=== PATIENT | male | born 1950 | race Caucasian/White ===

== ENCOUNTER 2023-07-17 07:31 | Outpatient (AMB) | payer OTHER, SELFPAY ==
--- NOTE | 2023-07-17 07:35 | MHC.PC.OV ---
Vital Signs 07/17/23 07:36 Height 6 ft 2 in Weight 224 lb BMI 28.8 BP 120/70 Blood Pressure Location Lt brachial Position Sitting Pulse 78 Pulse Source Pulse Oximeter Pulse Oximetry (%) 99 Oxygen Delivery Method Room Air Intake Visit Reasons: PE Intake Note: Pt is here today for PE. Allergies No Known Allergies Allergy (Unverified 07/17/23 07:38) Medication List - Last Reconciled 07/17/23 by Delmi Ramirez MD amlodipine 5 mg PO DAILY atorvastatin 20 mg PO DAILY benazepril 20 mg PO DAILY bupropion HCl 150 mg PO QAM escitalopram oxalate 20 mg PO DAILY Tobacco use date assessed: 07/17/23 Fall risk assessment: No Falls in past year Last assessed Fall Risk: 07/17/23 Dental Screening Dental Screen Date: 07/17/23 Did you have a dental visit in the last 12 months?: No Did you have a dental problem in the last 6 months where you did not have access to dental care?: No Was dental information given to patient?: Patient declined HPI PE HPI Details Pt presents for [employer] PE. PMH includes anxiety, HTN, hyperlipid, stable on meds. Patient has been under lot of stress related to his diagnosed with Alzheimer's disease and his stepson living with them for the last year. PFSH Medical History (Updated 07/17/23 @ 15:35 by Delmi Ramirez MD) History of prostate cancer Surgical History (Updated 07/17/23 @ 08:07 by Delmi Ramirez MD) History of hernia surgery Family History Father Lymphoma Mother No problems noted. Social History (Updated 07/17/23 @ 08:16 by Delmi Ramirez MD) Household Members Other:: , with Alzheimer Housing: House Patient Tobacco Use Status: Never used Tobacco e-Cigarette/Vaping Use: Never Used Current occupational status: retired Cognitive needs: No Hearing needs: No Vision needs: No Questionnaire PHQ-9 Over the last 2 weeks, how often have you been bothered by any of the following problems? 1. Little interest or pleasure in doing things: more than half the days 2. Feeling down, depressed, or hopeless: several days 3. Trouble falling or staying asleep, or sleeping too much: several days 4. Feeling tired or having little energy: several days 5. Poor appetite or overeating: several days 6. Feeling bad about yourself - or that you are a failure or have let yourself or your family down: several days 7. Trouble concentrating on things, such as reading the newspaper or watching television: not at all 8. Moving or speaking so slowly that other people could have noticed. Or the opposite - being so fidgety or restless that you have been moving around a lot more than usual: not at all 9. Thoughts that you would be better off or of hurting yourself in some way: not at all Total score: 7 Depression Screening Interpretation: Negative Depression Screening Done: Yes Source: Developed by Drs. Vernon Macdonald, Melissa Ramos, Felipe García and colleagues, with an educational orestes from [employer]. Thrive Questionnaire Date Thrive assessed: 07/17/23 I am a: Patient What is your living situation today?: I have a steady place to live Within the past 12 months, did the food you bought not last and you didn't have the money to get more?: Never true Within the past 12 months, did you worry whether your food would run out before you got money to buy more?: Never true Do you have trouble paying for medicines?: No Do you have trouble getting transportation to medical appointments?: No Do you have trouble paying your heating and electricity bill?: No Do you have trouble taking care of your child, family member or friend?: No Do you have trouble with day-to-day activities such as bathing, preparing meals, shopping, managing finances, etc.?: No Are you currently unemployed and looking for a job?: No Are you interested in more education?: No Please select the resources that you would like help with: None Currently or been in a relationship where the following occur: no concerns reported THRIVE Score: 0 AUDIT C Alcohol Use Questionnaire (AUDIT-C) 1. How often do you have a drink containing alcohol?: Never 3. How often do you have six or more drinks on one occasion?: Never Total Score: 0 DIOGNEES-7 AMB Questionnaire DIOGENES-7 Date DIOGENES - 7 assessed: 07/17/23 Feeling nervous, anxious, or on edge: 3 = Nearly every day Not being able to stop or control worryin = Nearly every day Worrying too much about different things: 3 = Nearly every day Trouble relaxin = Nearly every day Being so restless that it is hard to sit still: 2 = More than half the days Becoming easily annoyed or irritable: 3 = Nearly every day Feeling afraid as if something awful might happen: 3 = Nearly every day Total DIOGENES-7 score (0-4 normal; 5-9 mild; 10-14 moderate; 15-21 severe): 20 Source: Developed by Drs. Vernon Macdonald, Melissa Ramos, Felipe García and colleagues, with an educational orestes from [employer]. DIOGENES-7 Assessment Billing DIOGENES-7 Assessment Tool: DIOGENES-7 Assessment 93970 Review of Systems Const All systems reviewed & are unremarkable except as noted in HPI and below Reports no additional complaints Eyes Reports no additional complaints ENT Reports no additional complaints Card Reports no additional complaints Resp Reports no additional complaints GI Reports no additional complaints Reports no additional complaints Physical exam (Primary Care) Vital Signs: Last Vital Signs Pulse 78 07/17/23 07:36 BP 120/70 07/17/23 07:36 Pulse Ox 99 07/17/23 07:36 Oxygen Delivery Method Room Air 07/17/23 07:36 BMI result Body Mass Index 28.8 Tobacco/Smoking Status: Tobacco use Status Tobacco use date assessed 07/17/23 07/17/23 07:46 Patient Tobacco Use Status Never used Tobacco 07/17/23 08:16 e-Cigarette/Vaping Use Never Used 07/17/23 08:16 PHQ-9: PHQ-9 Score PHQ-9: Total score 7 07/17/23 08:21 Depression Screening Interpretation: Negative Thrive Assessment: Date of Thrive Assessment Date Thrive assessed 07/17/23 07/17/23 08:21 Currently or been in a relationship where the following occur: no concerns reported Const General: no acute distress HENMT Head: Yes normal to inspection Ears: hearing grossly normal bilaterally Mouth: Normal oral and palatal mucosa present Throat: Yes posterior oropharynx normal Eyes General: appearance normal, both eyes and all related structures Neck Neck: Yes no lymphadenopathy and Yes supple Resp Effort & Inspection: normal respiratory effort Auscultation: clear to auscultation bilaterally Cardio Rhythm: regular rhythm Heart sounds: S1 normal heart sound present and S2 normal heart sound present GI Inspection: Yes normal to inspection Palpation (GI): Soft to palpation Percussion: Yes normal to percussion Auscultation: normal bowel sounds Assessment and Plan Assessment & Plan (1) HTN (hypertension): Code(s): I10 - Essential (primary) hypertension Plan: Continue current medications, patient will return for fasting blood work (2) Anxiety: Code(s): F41.9 - Anxiety disorder, unspecified Plan: Continue current medications (3) Hx of colonoscopy: Comment: 2013 Code(s): Z98.890 - Other specified postprocedural states Plan: Obtain report on a colonoscopy (4) Hyperlipidemia: Code(s): E78.5 - Hyperlipidemia, unspecified Plan: Continue statin (5) History of prostate cancer: Comment: surgery and [id number], f/u [facility] oncology Code(s): Z85.46 - Personal history of malignant neoplasm of prostate Plan: Follow-up with oncology and urology Orders: Orders Complete Blood Count Auto Diff Today F41.9 - Anxiety disorder, unspecified, I10 - Essential (primary) hypertension Comprehensive [place]. Panel Fast Today F41.9 - Anxiety disorder, unspecified, I10 - Essential (primary) hypertension Lipid Panel Today F41.9 - Anxiety disorder, unspecified, I10 - Essential (primary) hypertension TSH reflex Free T4 Today F41.9 - Anxiety disorder, unspecified, I10 - Essential (primary) hypertension UA CC w/rflx Micro + Cult Today F41.9 - Anxiety disorder, unspecified, I10 - Essential (primary) hypertension Medications: New atorvastatin 20 mg PO DAILY 90 tabs 3RF amlodipine 5 mg PO DAILY 90 tabs 3RF Refilled benazepril 20 mg PO DAILY 90 tabs 3RF escitalopram oxalate 20 mg PO DAILY 90 tabs 3RF bupropion HCl 150 mg PO QAM 90 tabs 3RF Coding Level of Care Code New Pt Prev Care >65yr (74708) Diagnoses HTN (hypertension) I10 Anxiety F41.9 Hx of colonoscopy Z98.890 Hyperlipidemia E78.5 History of prostate cancer Z85.46 Additional Codes DIOGENES-7 Assessment Billing - DIOGENES-7 Assessment Tool: DIOGENES-7 Assessment 47522 ([id number])
[2023-07-17 07:36] VITALS: BP 120/70; PULSE 78; O2SAT 99; BMI 28.8
== END 2023-07-17 15:36 | disposition home or self-care (01) ==
PROVIDERS: PCP Internal Medicine; Visit Provider Internal Medicine
DX: Z00.00 Encounter for general adult medical examination without abnormal findings (principal); I10 Essential (primary) hypertension; F41.9 Anxiety disorder, unspecified; Z98.890 Other specified postprocedural states; E78.5 Hyperlipidemia, unspecified; Z85.46 Personal history of malignant neoplasm of prostate
CPT/HCPCS: 99387

== ENCOUNTER 2023-07-17 08:22 | Outpatient (REF) | payer MEDICARE, SELFPAY ==
[2023-07-17 10:14] LABS: MANUAL DIFF FLAG NO
[2023-07-17 10:16] LABS: Appearance Urine Clear; Color Urine Dark Yellow; Glucose Urine UA Negative (Negative); Leukocyte Esterase Urine Negative (Negative); Nitrite Urine Negative (Negative); PH 5.5 (5.0-9.0); Specific Gravity - Urine 1.025 (1.005-1.025); Urine Blood Negative (Negative); Urine Ketones Negative (Negative); Urine Protein Negative (Neg-Trace)
[2023-07-17 10:22] LABS: Basophils Absolute Auto 0.1 X10*3/uL (0.0-0.2); Basophils Percent Auto 0.6 % (0-2); Eosinophils Absolute Auto 0.1 X10*3/uL (0.0-0.4); Eosinophils Percent Auto 0.9 % (0-4); Hematocrit 50.8 % (42.0-52.0); Hemoglobin 17.5 g/dl (14.0-18.0); Imm Gran Abs Auto 0.03 X10*3/uL (0.00-0.03); Imm Gran Pct Auto 0.4 % (0.0-0.4); Lymphocytes Absolute Auto 1.2 X10*3/uL (1.2-4.9); Mean Corpuscular HGB Conc 34.4 g/dl (31.0-36.0); Mean Corpuscular Hemoglobin 30.6 pg (27.0-33.0); Mean Platelet Volume 9.8 fL (9.4-12.4); Monocytes Absolute Auto 0.5 X10*3/uL (0.1-1.2); Monocytes Percent Auto 6.8 % (2-11); Neutrophils Absolute Auto 5.8 x10*3/uL (2.0-8.3); Neutrophils Percent Auto 75.3 % (45-73); Platelet Count 261 X10*3/uL (160-400); Red Blood Count 5.71 X10*6/uL (4.60-5.80); White Blood Count 7.8 X10*3/uL (4.8-10.8)
[2023-07-17 11:12] LABS: Alanine Aminotransferase 17 U/L (0-40); Albumin Level 4.6 g/dL (3.5-5.0); Alkaline Phosphatase 79 U/L (39-117); Anion Gap 17 (12-20); Aspartate Amino Transferase 14 U/L (5-37); Bilirubin Total 0.7 mg/dL (0.0-1.0); Blood Urea Nitrogen 24 mg/dL (9-16); Calcium 10.1 mg/dL (8.4-10.2); Carbon Dioxide 22 mmol/L (22-29); Chloride 107 mmol/L (96-108); Cholesterol 159 mg/dL (<200); Estimated Glomerular Filt Rate > 60; Glucose Fasting 103 mg/dL (60-99); HDL Cholesterol 41 mg/dL (>40); LDL Cholesterol Calculated 67 mg/dL (<100); Potassium 4.6 mmol/L (3.3-5.1); Sodium 141 mmol/L (135-145); Total Protein 7.7 g/dL (6.5-8.0); Triglycerides 259 mg/dL (<150)
[2023-07-17 11:29] LABS: TSH reflex Free T4 3.62 uIU/mL (0.32-4.0)
== END 2023-07-17 08:23 | disposition home or self-care (01) ==
LOC: HO.HMGCLDS 08:22
PROVIDERS: PCP Internal Medicine; Visit Provider Internal Medicine
DX: I10 Essential (primary) hypertension (principal); F41.9 Anxiety disorder, unspecified
CPT/HCPCS: 36415; 80053; 80061; 81003; 84443; 85025

== ENCOUNTER 2023-10-22 07:25 | Outpatient (AMB) | payer OTHER, SELFPAY ==
[2023-10-22 07:44] VITALS: BP 130/80; PULSE 75; O2SAT 96; BMI 29.0
--- NOTE | 2023-10-22 07:44 | A.OFFPC_ITS ---
Vital Signs 10/22/23 07:44 Height 6 ft 2 in Weight 226 lb BMI 29.0 BP 130/80 Blood Pressure Location Rt brachial Position Sitting Pulse 75 Pulse Source Pulse Oximeter Pulse Oximetry (%) 96 Oxygen Delivery Method Room Air Intake Visit Reasons: 3 month follow up - see comment Intake Note: Pt is here today for his 3mo. f/u Allergies No Known Allergies Allergy (Unverified 10/22/23 07:45) Medication List - Last Reconciled 10/22/23 by Delmi Ramirez MD amlodipine 5 mg PO DAILY atorvastatin 20 mg PO DAILY benazepril 20 mg PO DAILY bupropion HCl XL 150 mg PO QAM escitalopram oxalate 20 mg PO DAILY Tobacco use date assessed: 10/22/23 Fall risk assessment: No Falls in past year Last assessed Fall Risk: 10/22/23 Dental Screening Dental Screen Date: 10/22/23 Did you have a dental visit in the last 12 months?: No Was dental information given to patient?: No HPI 3 month follow up - see comment HPI Details Patient is for follow-up on hypertension hyperlipidemia chronic anxiety stable on current medications. [facility] Medical History History of prostate cancer Surgical History History of hernia surgery Family History Father Lymphoma Mother No problems noted. Social History Household Members Other:: , with Alzheimer Housing: House Patient Tobacco Use Status: Never used Tobacco e-Cigarette/Vaping Use: Never Used Current occupational status: retired Cognitive needs: No Hearing needs: No Vision needs: Yes Questionnaire Thrive Questionnaire Date Thrive assessed: 07/17/23 DIOGENES-7 AMB Questionnaire DIOGENES-7 Date DIOGENES - 7 assessed: 07/17/23 Source: Developed by Drs. Vernon Macdonald, Melissa Ramos, Felipe García and colleagues, with an educational orestes from [employer] Review of Systems Const All systems reviewed & are unremarkable except as noted in HPI and below Reports no additional complaints Eyes Reports no additional complaints ENT Reports no additional complaints Card Reports no additional complaints Resp Reports no additional complaints GI Reports no additional complaints Reports no additional complaints Physical exam (Primary Care) Vital Signs: Last Vital Signs Pulse 75 10/22/23 07:44 BP 130/80 10/22/23 07:44 Pulse Ox 96 10/22/23 07:44 Oxygen Delivery Method Room Air 10/22/23 07:44 BMI result Body Mass Index 29.0 Tobacco/Smoking Status: Tobacco use Status Tobacco use date assessed 10/22/23 10/22/23 07:48 Patient Tobacco Use Status Never used Tobacco 10/22/23 07:48 e-Cigarette/Vaping Use Never Used 10/22/23 07:48 Thrive Assessment: Date of Thrive Assessment Date Thrive assessed 07/17/23 10/22/23 07:48 Const General: no acute distress HENMT Head: Yes normal to inspection Eyes General: appearance normal, both eyes and all related structures Neck Neck: Yes supple Resp Effort & Inspection: normal respiratory effort Auscultation: clear to auscultation bilaterally Cardio Rhythm: regular rhythm Heart sounds: S1 normal heart sound present and S2 normal heart sound present GI Inspection: Yes normal to inspection Assessment and Plan Assessment & Plan (1) Hyperlipidemia: Code(s): E78.5 - Hyperlipidemia, unspecified Plan: Continue statin (2) HTN (hypertension): Code(s): I10 - Essential (primary) hypertension Plan: Continue current medications (3) Anxiety: Code(s): F41.9 - Anxiety disorder, unspecified Plan: Continue current medications Orders: Orders Comprehensive [place]. Panel Fast 8 Months E78.5 - Hyperlipidemia, unspecified, F41.9 - Anxiety disorder, unspecified, I10 - Essential (primary) hypertension Complete Blood Count Auto Diff 8 Months E78.5 - Hyperlipidemia, unspecified, F41.9 - Anxiety disorder, unspecified, I10 - Essential (primary) hypertension Lipid Panel 8 Months E78.5 - Hyperlipidemia, unspecified, F41.9 - Anxiety disorder, unspecified, I10 - Essential (primary) hypertension Coding Level of Care Code Est Pt Level 4 (86780) Diagnoses Hyperlipidemia E78.5 HTN (hypertension) I10 Anxiety F41.9
== END 2023-10-22 08:14 | disposition home or self-care (01) ==
PROVIDERS: PCP Internal Medicine; Visit Provider Internal Medicine
DX: E78.5 Hyperlipidemia, unspecified (principal); I10 Essential (primary) hypertension; F41.9 Anxiety disorder, unspecified
CPT/HCPCS: 99214

== ENCOUNTER 2024-09-15 12:24 | Outpatient (AMB) | payer MEDICARE, SELFPAY ==
--- NOTE | 2024-09-15 12:42 | A.OFFPC_ITS ---
Vital Signs 09/15/24 12:43 Height 6 ft 2 in Weight 220 lb BMI 28.2 BP 126/82 Blood Pressure Location Lt brachial Position Sitting Respiration 18 Pulse 81 Pulse Source Pulse Oximeter Temp 98.7 F Temp Source Oral Pulse Oximetry (%) 98 Oxygen Delivery Method Room Air Intake Visit Reasons: Med Review - see comments Intake Note: Pt is here today for a follow up visit. Allergies No Known Allergies Allergy (Unverified 09/15/24 12:44) Medication List - Last Reconciled 09/15/24 by Delmi Ramirez MD amlodipine 5 mg PO DAILY atorvastatin 20 mg PO DAILY benazepril 20 mg PO DAILY bupropion HCl XL 150 mg PO QAM escitalopram oxalate 20 mg PO DAILY Tobacco use date assessed: 09/15/24 Fall risk assessment: No Falls in past year Last assessed Fall Risk: 09/15/24 Dental Screening Dental Screen Date: 09/15/24 Did you have a dental visit in the last 12 months?: No Did you have a dental problem in the last 6 months where you did not have access to dental care?: No Was dental information given to patient?: Patient declined HPI Med Review - see comments HPI Details Pt presents for f/u HTN and hyperlipid, stable on meds PFSH Medical History History of prostate cancer Surgical History History of hernia surgery Family History Father Lymphoma Mother No problems noted. Social History Household Members Other:: , with Alzheimer Housing: House Patient Tobacco Use Status: Never used Tobacco e-Cigarette/Vaping Use: Never Used service: No Current occupational status: retired Cognitive needs: No Hearing needs: No Vision needs: Yes Questionnaire PHQ-9 Over the last 2 weeks, how often have you been bothered by any of the following problems? 1. Little interest or pleasure in doing things: more than half the days 2. Feeling down, depressed, or hopeless: not at all 3. Trouble falling or staying asleep, or sleeping too much: several days 4. Feeling tired or having little energy: several days 5. Poor appetite or overeating: not at all 6. Feeling bad about yourself - or that you are a failure or have let yourself or your family down: not at all 7. Trouble concentrating on things, such as reading the newspaper or watching television: not at all 8. Moving or speaking so slowly that other people could have noticed. Or the opposite - being so fidgety or restless that you have been moving around a lot more than usual: not at all 9. Thoughts that you would be better off or of hurting yourself in some way: not at all Total score: 4 Depression Screening Interpretation: Negative Depression Screening Done: Yes 69237 - PHQ-9 Billing: Yes Source: Developed by Drs. Vernon Macdonald, Melissa Ramos, Felipe García and colleagues, with an educational orestes from [employer]. Thrive Questionnaire Date Thrive assessed: 09/15/24 I am a: Patient What is your living situation today?: I have a steady place to live Within the past 12 months, did the food you bought not last and you didn't have the money to get more?: Never true Within the past 12 months, did you worry whether your food would run out before you got money to buy more?: Never true Do you have trouble paying for medicines?: No Do you have trouble getting transportation to medical appointments?: No Do you have trouble paying your heating and electricity bill?: No Do you have trouble taking care of your child, family member or friend?: No Do you have trouble with day-to-day activities such as bathing, preparing meals, shopping, managing finances, etc.?: No Are you currently unemployed and looking for a job?: No Are you interested in more education?: No Please select the resources that you would like help with: None Currently or been in a relationship where the following occur: No concerns reported THRIVE Score: 0 AUDIT C Alcohol Use Questionnaire (AUDIT-C) 1. How often do you have a drink containing alcohol?: Never 3. How often do you have six or more drinks on one occasion?: Never Total Score: 0 DIOGENES-7 AMB Questionnaire DIOGENES-7 Date DIOGENES - 7 assessed: 09/15/24 Feeling nervous, anxious, or on edge: 0 = Not at all Not being able to stop or control worryin = Not at all Worrying too much about different things: 0 = Not at all Trouble relaxin = Not at all Being so restless that it is hard to sit still: 0 = Not at all Becoming easily annoyed or irritable: 0 = Not at all Feeling afraid as if something awful might happen: 0 = Not at all Total DIOGENES-7 score (0-4 normal; 5-9 mild; 10-14 moderate; 15-21 severe): 0 Source: Developed by Drs. Vernon Macdonald, Melissa Ramos, Felipe García and colleagues, with an educational orestes from [employer]. DIOGENES-7 Assessment Billing DIOGENES-7 Assessment Tool: DIOGENES-7 Assessment 71585 Review of Systems Const All systems reviewed & are unremarkable except as noted in HPI and below Eyes Reports no additional complaints ENT Reports no additional complaints Card Reports no additional complaints Resp Reports no additional complaints GI Reports no additional complaints Reports no additional complaints Physical exam (Primary Care) Vital Signs: Last Vital Signs Temp 98.7 F 09/15/24 12:43 Pulse 81 09/15/24 12:43 Resp 18 09/15/24 12:43 BP 126/82 09/15/24 12:43 Pulse Ox 98 09/15/24 12:43 Oxygen Delivery Method Room Air 09/15/24 12:43 BMI result Body Mass Index 28.2 Tobacco/Smoking Status: Tobacco use Status Tobacco use date assessed 09/15/24 09/15/24 12:49 Patient Tobacco Use Status Never used Tobacco 09/15/24 12:49 e-Cigarette/Vaping Use Never Used 09/15/24 12:49 PHQ-9: PHQ-9 Score PHQ-9: Total score 4 09/15/24 12:49 Depression Screening Interpretation: Negative Thrive Assessment: Date of Thrive Assessment Date Thrive assessed 09/15/24 09/15/24 12:49 Currently or been in a relationship where the following occur: No concerns reported Const General: no acute distress HENMT Head: Yes normal to inspection Mouth: Normal oral and palatal mucosa present Throat: Yes posterior oropharynx normal Eyes General: appearance normal, both eyes and all related structures Resp Effort & Inspection: normal respiratory effort Auscultation: clear to auscultation bilaterally Cardio Rhythm: regular rhythm Heart sounds: S1 normal heart sound present and S2 normal heart sound present GI Inspection: Yes normal to inspection Palpation (GI): Soft to palpation Percussion: Yes normal to percussion Auscultation: normal bowel sounds Coding Level of Care Code Est Pt Level 4 (47688) Diagnoses Hx of colonoscopy Z98.890 HTN (hypertension) I10 Hyperlipidemia E78.5 Anxiety F41.9 History of prostate cancer Z85.46 Additional Codes DIOGENES-7 Assessment Billing - DIOGENES-7 Assessment Tool: DIOGENES-7 Assessment 48021 ([id number]) PHQ-9 - 49419 - PHQ-9 Billing: Yes ([id number]) Assessment & Plan Assessment & Plan (1) Hx of colonoscopy: Comment: 2013, Cologuard negative 2023 by insurance ? check results Code(s): Z98.890 - Other specified postprocedural states Category: Surgical Plan: Patient negative Cologuard last year (2) HTN (hypertension): Code(s): I10 - Essential (primary) hypertension Category: Medical Plan: Continue current medications (3) Hyperlipidemia: Code(s): E78.5 - Hyperlipidemia, unspecified Category: Medical Plan: Continue statin return in 1 year (4) Anxiety: Code(s): F41.9 - Anxiety disorder, unspecified Category: Medical Plan: Continue current medications (5) History of prostate cancer: Comment: surgery and [id number], f/u [facility] oncology Code(s): Z85.46 - Personal history of malignant neoplasm of prostate Category: Medical Plan: Follow-up with Urology Orders: Orders Comprehensive [place]. Panel Fast Today E78.5 - Hyperlipidemia, unspecified, I10 - Essential (primary) hypertension Lipid Panel Today E78.5 - Hyperlipidemia, unspecified, I10 - Essential (primary) hypertension Comprehensive [place]. Panel Fast 1 Year E78.5 - Hyperlipidemia, unspecified, I10 - Essential (primary) hypertension Complete Blood Count Auto Diff 1 Year E78.5 - Hyperlipidemia, unspecified, I10 - Essential (primary) hypertension Lipid Panel 1 Year E78.5 - Hyperlipidemia, unspecified, I10 - Essential (primary) hypertension Complete Blood Count Auto Diff Today E78.5 - Hyperlipidemia, unspecified, I10 - Essential (primary) hypertension UA w Microscopic 1 Year E78.5 - Hyperlipidemia, unspecified, I10 - Essential (primary) hypertension Medications: Refilled benazepril 20 mg PO DAILY 90 tabs 3RF escitalopram oxalate 20 mg PO DAILY 90 tabs 3RF amlodipine 5 mg PO DAILY 90 tabs 3RF atorvastatin 20 mg PO DAILY 90 tabs 3RF bupropion HCl XL 150 mg PO QAM 90 tabs 3RF
[2024-09-15 12:43] VITALS: BP 126/82; PULSE 81; RESP 18; TEMP 37.1; O2SAT 98; BMI 28.2
== END 2024-09-15 12:59 | disposition home or self-care (01) ==
PROVIDERS: PCP Internal Medicine; Visit Provider Internal Medicine
DX: Z98.890 Other specified postprocedural states (principal); I10 Essential (primary) hypertension; E78.5 Hyperlipidemia, unspecified; F41.9 Anxiety disorder, unspecified; Z85.46 Personal history of malignant neoplasm of prostate

== ENCOUNTER → 2024-09-15 12:24 | Outpatient (BNVA) | payer MEDICARE, SELFPAY | PROVIDERS: PCP Internal Medicine; Visit Provider Internal Medicine | DX: I10 Essential (primary) hypertension (principal); E78.5 Hyperlipidemia, unspecified; F41.9 Anxiety disorder, unspecified; Z85.46 Personal history of malignant neoplasm of prostate; Z98.890 Other specified postprocedural states | CPT/HCPCS: 96127; 99212 ==

== ENCOUNTER 2025-01-12 10:43 | Outpatient (AMB) | payer MEDICARE, SELFPAY ==
--- NOTE | 2025-01-12 10:50 | AM.OFFWIN_ITS ---
Intake Vital Signs 01/12/25 10:52 Height 6 ft 2 in Weight 230 lb BMI 29.5 BP 138/82 Blood Pressure Location Lt brachial Position Sitting Respiration 17 Pulse 75 Pulse Source Pulse Oximeter Temp 98.3 F Temp Source Oral Pulse Oximetry (%) 98 Oxygen Delivery Method Room Air Intake Visit Reasons: EP Gout in RT wrist Intake Note: gout in R wrist Patient Tobacco Use Status: Never used Tobacco Allergies No Known Allergies Allergy (Verified 01/12/25 10:51) Do you need a note to return to daycare/school/sports/work: No HPI HPI Comments History of Present Illness Details History - The patient is a 74-year-old male pres enting with a flare of gout in the wrist. - The patient has a history of gout, typ ically affecting the toes, with the current episode being the first occurrence in the wrist. - The wrist pain began approximately thr ee weeks ago, initially mild, but worsened significantly over the past 5 days. - The patient reports dietary triggers, including consumption of red meat and fast food, which may have exacerbated the condition. - The patient has been managing gout wit h Tylenol due to a history of kidney stones and having only one kidney, avoiding NSAIDs as advised by a physician. - Previous use of Aleve was ineffective in alleviating symptoms. Physical Exam General: Cooperative, healthy appearing, comfortable, no acute distress and well developed Orientation: Patient oriented x3 Limitations: No limitations Head: Normal to inspection Ears: Hearing grossly normal bilaterally Nose: Normal External nose present Face and sinus: Normal facial exam Mouth: normal, moist oral mucosa Eyes: Appearance normal, both eyes and all related structures Neck: Normal visual inspection and Yes full ROM Respiratory: Normal respiratory effort and able to speak in complete sentences. Skin: no rashes or lesions noted Neuro: Patient oriented x3 Extremities: moving all extremities normally, except right wrist which is TTP, has erythema and edema PFSH Medical History History of prostate cancer Surgical History History of hernia surgery Family History Father Lymphoma Mother No problems noted. Social History Household Members Other:: , with Alzheimer Housing: House Patient Tobacco Use Status: Never used Tobacco e-Cigarette/Vaping Use: Never Used service: No Current occupational status: retired Cognitive needs: No Hearing needs: No Vision needs: Yes Review of Systems Const All systems reviewed & are unremarkable except as noted in HPI and below Physical Exam Vital Signs: Last Vital Signs Temp 98.3 F 01/12/25 10:52 Pulse 75 01/12/25 10:52 Resp 17 01/12/25 10:52 BP 138/82 01/12/25 10:52 Pulse Ox 98 01/12/25 10:52 Oxygen Delivery Method Room Air 01/12/25 10:52 BMI result Body Mass Index 29.5 Assessment & Plan Assessment & Plan (1) Gout attack: Code(s): M10.9 - Gout, unspecified Qualifiers: Gout site: wrist Gout etiology: unspecified cause Laterality: right Qualified Code(s): M10.9 - Gout, unspecified Plan: Plan Patient was informed and verbally consented to the use of an ambient scribe for clinic note documentation during this visit Gout - Initiate prednisone 50 mg once daily for five days to manage the acute flare. - Advise dietary modifications to avoid red meat, beer and shrimp and other known triggers. Medications: New prednisone 50 mg PO QAM 5 tabs 0RF Coding Level of Care Code Est Pt Level 3 (25087) Diagnoses Acute gout of right wrist, unspecified cause M10.9 Gout site: wrist Gout etiology: unspecified cause Laterality: right
[2025-01-12 10:52] VITALS: BP 138/82; PULSE 75; RESP 17; TEMP 36.8; O2SAT 98; BMI 29.5
--- OUTSIDE RECORDS SUMMARY | 2025-01-12 12:13 | XMS_ITS | Clinical Summary ---
Author Organization [facility] Address [address] [place] [id number] Phone Care Team Providers Care Piler Name Role Phone Unknown, Unknown Primary Care Provider True labmagalie Allergies No known active allergies Medications atorvastatin (LIPITOR) 20 MG tablet TAKE 1 TABLET(20 MG) BY MOUTH DAILY 90 tablet 3 05/28/2022 Active benazepril (LOTENSIN) 20 MG tablet TAKE 1 TABLET(20 MG) BY MOUTH DAILY 90 tablet 3 05/28/2022 Active amLODIPine (NORVASC) 5 MG tabletIndications :Essential hypertension TAKE 1 TABLET(5 MG) BY MOUTH DAILY 90 tablet 3 08/26/2022 Active buPROPion (WELLBUTRIN XL) 150 MG ER 24 hr tabletIndications :DIOGENES (generalized anxiety disorder),Current moderate episode of major depressive disorder, unspecified whether recurrent TAKE 1 TABLET(150 MG) BY MOUTH DAILY 90 tablet 3 11/20/2022 Active escitalopram oxalate (LEXAPRO) 20 MG tabletIndications :Current moderate episode of major depressive disorder TAKE 1 TABLET(20 MG) BY MOUTH DAILY 90 tablet 04/21/2023 Active Active Problems Problem Noted Date Diagnosed Date Routine general medical exam ination at a health care facility 01/14/2022 Assessment & Plan (01/14/2022 9:40 AM EDT): The patient's memory is improving much after having COVID back in 2019 and being in the hospital. Back then he could barely remember the hospital stay itself. Afterwards had a lot of memory issues and now is much better he states. He is able to go about his ADLs with no issue. His mood is stable, continues on the Lexapro and Wellbutrin as before without side effect. We can see him every 6 months. He will continue on benazepril for hypertension as well as Norvasc. Memory loss 09/24/2021 Assessment & Plan (01/14/2022 9:38 AM EDT): This has been improving with time. The memory loss came after April 2020 hospital stay COVID-19. Patient continues to work on memory and keeping his mind agile Assessment & Plan (09/24/2021 5:43 PM EDT): This appears to be a long-term consequence of hospitalization with BEBO. He should work on his memory, he can take Prevagen and see if that helps with his memory. We will check a B12 level and thyroid preliminarily and then see how he does within the next 3 months. If he finds that there is no progress or these are getting worse then we will refer him to Dr. Carney if necessary. Incisional hernia of anterio r abdominal wall without obstruction or gangrene 12/04/2020 Assessment & Plan (12/04/2020 9:00 AM EDT): He has both an umbilical hernia and then when it appears to be a incisional hernia above it possibly after the radical prostatectomy. No signs of incarceration no abdominal tenderness still the patient is requesting a surgical consult so we will send the patient to Dr. Patel at [facility] to assess for repair. Congenital absence of one kidney 12/04/2020 Current moderate episode of major depressive dis order 12/04/2020 Assessment & Plan (07/07/2022 8:23 AM EST): Wellbutrin and SSRI working well for depression. Assessment & Plan (09/24/2021 5:45 PM EDT): Patient on Lexapro and Wellbutrin for anxiety and depression, we can maintain these doses since the products are working very well to help him reduce or eliminate panic attacks and depression. We can follow-up in 3 months on his wellness visit otherwise I will see him twice a year. Assessment & Plan (03/06/2021 9:14 AM EDT): Mood is good, stable, no anxiety, continue Lexapro plus Wellbutrin 150 XL. Monitor again in August. Assessment & Plan (01/25/2021 10:22 AM EDT): The patient's depression was not really the main reason the Wellbutrin was written but his depression is being monitored again today and he notes improvement not only of his anxiety attacks or free-floating anxiety but also his depression is improved markedly. Assessment & Plan (12/04/2020 9:02 AM EDT): Please see assessment in DIOGENES COVID-19 virus infection 06/05/2020 Overview (06/05/2020): Pt was admitted 05/13 for 7 days in [facility] for dyspnea associated with covid 19 infection. 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 He was not intubated but required O2 during the hospitalization. Assessment & Plan (06/05/2020 6:15 PM EST): On exam we could not find any sick related to the recent COVID-19 infection that he had in April. His speech was normal in form and content and his mentation level and cognitive level as well as the syntax of this sentences all within normal limits. Nephrolithiasis 06/05/2020 Essential hypertension 06/05/2020 Assessment & Plan (07/07/2022 8:24 AM EST): Hypertension well controlled with current listed antihypertensives. Denies side effects No change to dosing. Low Sodium diet reinforced. Continue to monitor condition. Assessment & Plan (01/14/2022 9:38 AM EDT): Hypertension well controlled with current listed antihypertensives. Denies side effects No change to dosing. Low Sodium diet reinforced. Continue to monitor condition. Assessment & Plan (09/24/2021 5:40 PM EDT): Hypertension well controlled with current listed antihypertensives. Denies side effects No change to dosing. Low Sodium diet reinforced. Continue to monitor condition. We will obtain a Chem-7 to assess electrolyte and kidney function. Assessment & Plan (03/06/2021 9:13 AM EDT): Maintain Norvasc at 5 mg and we will see the patient back in August for follow-up 15 minutes, physical exam though will be in November. Low-sodium diet reinforced, we encouraged him to exercise and if he is feeling lightheaded when standing up we encouraged him to drink more water as it can sometimes be an issue as well. If he is losing weight and checking his blood pressure at home he may come off of the amlodipine entirely and then he should just let us know. Assessment & Plan (01/25/2021 10:21 AM EDT): Blood pressure is very well controlled but he is having orthostasis and that could be partially due to the Norvasc at 10 mg. Let us reduce down to 5 mg and see if he is feeling better in regards to both orthostatic symptoms and some mild fatigue that could be blood pressure related. Also drink more water stay well-hydrated was counseled to him but be mindful about salt intake especially hidden salt. Assessment & Plan (12/04/2020 8:57 AM EDT): Hypertension well controlled with current listed antihypertensives. Denies side effects No change to dosing. Low Sodium diet reinforced. Continue to monitor condition. Assess electrolytes kidney function in the context of his hypertension with particular attention to potassium level. Assessment & Plan (06/05/2020 6:16 PM EST): Blood pressure well within target range, will check electrolytes and kidney function especially given the fact that he has 1 kidney. Follow-up every 6 months next time we see him will be for a wellness visit in 6 months. A total of 46 minutes today for this visit of [id number] time with greater than half used in counseling on the above-stated topics as well as accruing information on the patient's past medical history. Dyslipidemia 06/05/2020 Assessment & Plan (07/07/2022 8:23 AM EST): Last lipid panel 6 months ago well within target range, continue current management and follow-up lipid panel in 6 months. No statin myalgias. Assessment & Plan (01/14/2022 9:38 AM EDT): Will reassess lipids today and in 6 months. Continue Lipitor 20 mg, assess liver enzymes as well. Assessment & Plan (09/24/2021 5:41 PM EDT): Low-fat diet, continue with Lipitor and we will reassess lipid profile today goal is LDL less than 100. Consider increasing dose if cholesterol does not meet expectation. Assessment & Plan (12/04/2020 8:58 AM EDT): Patient on statin, continue statin therapy check liver enzymes and compare with previous liver enzymes, if elevation consider right upper quadrant ultrasound. Check fasting lipid profile today. Adjust Lipitor if needed. Prostate cancer 05/25/2018 Overview (06/05/2020): Dx in 2018 by biopsy: 2018 radical prostatectomy but required f/u radiation due to residual tumor. hx of external beam 36 visits radiation, no chemotherapy or lupron. Pt being followed by Dr Bell from [facility]. Was discovered by PSA. Dr Campbell had sent to Dr Bell due to psa elevation. Assessment & Plan (01/14/2022 9:37 AM EDT): Will obtain a PSA but if elevated will pass on to the patient's urologist. He is status post prostatectomy at least 4 years out. Assessment & Plan (09/24/2021 5:40 PM EDT): He continues to be followed over at [facility] urology for prostate cancer, continues to come up with negative PSA Assessment & Plan (06/05/2020 6:13 PM EST): Referral was created and going forward PSA and further management of the prostatectomy/prostate cancer will be through urology. DIOGENES (generalized anxiety disorder) 05/25/2018 Overview (06/05/2020): 50 years hx of anxiety and depression. Pt's father was tough on pt as a child. 4 siblings, all are on antianxiety meds. Pt states that it is mostly anxiety. Was previously on paxil and prozac. Assessment & Plan (07/07/2022 8:23 AM EST): Current medical management working very well, will continue to follow every 6 months. No changes. Patient states no side effects with the medication. Assessment & Plan (01/25/2021 10:22 AM EDT): We can maintain the Wellbutrin XL add-on at 150 mg and maintain the patient on Lexapro. This combination appears to be when in combination and no untoward side effects. We will monitor twice a year but I will see him back in 4 weeks regarding the blood pressure. Assessment & Plan (12/04/2020 8:59 AM EDT): Flattening of the affect or morbid thoughts are not part of the patient's depression but he feels anxiety and depression and the Lexapro is not effective so we will add on Wellbutrin which is weight neutral. We will then look for side effects see if it is working in about 6 weeks. We will not add more Wellbutrin on but switch to a different medicine if need be. Consider psychiatric consult if need be. Assessment & Plan (06/05/2020 6:14 PM EST): We will be managing the patient's DIOGENES and will continue the Lexapro which seems to have good efficacy. Follow-up will be in 6 months regarding reassessment, there was no signs of depression also after the COVID-19 infection, no signs of worsening anxiety. Resolved Problems Problem Noted Date Diagnosed Date Resolved Date COVID-19 bekah [email or web address] 09/24/2021 022 Assessment & Plan (09/24/2021 5:44 PM EDT): I have included this diagnosis since he appears to have some memory loss due to the COVID-19 that he suffered a year and a half ago. Please see above for impression and plan. Immunizations Immunization Administration Dates Next Due COVID-19 (Pre-03/16) Pfizer Vaccine, mRNA, PF ,08/19/2020 INFLUENZA, SPLIT VIRUS, TRIVALENT PF 02/02/2020 INFLUENZA, SPLIT VIRUS, TRIVALENT W/ PRESERVATIV E IM 03/11/2017 Influenza High-Dose Quadrivalent Preservative Fr ee IM 02/05/2022,02/15/2021 Influenza, Unspecified Formulation 03/11/2017 Pneumococcal conjugate PCV13 11/05/2016 Pneumococcal polysaccharide PPSV23 04/08/2018 Tdap 11/05/2016 Family History Medical History Relation Comments Melanoma Father Relation Status Comments Father Social History Tobacco Use Types Packs/Day Years Used Date Smoking Tobacco: Never Smokeless Tobacco: Never Alcohol Use Standard Drinks/Week Comments Not Currently 0 (1 standard drink = 0.6 oz pur e alcohol) Child or Family Care Answer Date Record ed Do you have problems with on e of the following making it difficult for you to work, study, or receive health care? No 01/14/2022 Education Answer Date Recorded Are you interested in more education? Not on haydee e 01/20/2024 Are you concerned about learning? Not on file 01/20/2024 No 01/20/2024 No 01/20/2024 Food Answer Date Recorded Within the past 6 months we worried whether our food would run out before we got money to buy more. Never True 01/14/2022 Within the past 6 months the food we bought just didn't last and we didn't have enough money to get more. Never True Residential Stability Answer Date Recor ded What is your housing situation today? I have peg sing 01/14/2022 How many times have you move d in the past 12 months? Zero (I did not move) 01/14/2022 Paying for Meds Answer Date Recorded Do you have trouble paying for medicines? No 01/14/2022 Paying Utility Bills Answer Date Record ed Do you have trouble paying your heating or elect ricity bill? No 01/14/2022 Transportation Answer Date Recorded Has the lack of transportati on kept you from medical appointments or from getting medications? No 01/14/2022 Unemployment Answer Date Recorded Are you currently unemployed or working on a part-time or temporary basis, and looking for work? No 01/14/2022 Digital Access Answer Date Recorded No 10/21/2022 No 10/21/2022 Reliable internet access at home? Not on file 10/21/2022 Device with a working camera? Not on file Sex and Gender Information Value Date Recorded Sex Assigned at Male 01/14/2022 8:52 AM EDT Legal Sex Male 12:50 PM EST Gender Identity Male 01/14/2022 8:52 AM EDT Sexual Orientation Straight 01/14/2022 8: 52 AM EDT Last Filed Vital Signs Vital Sign Reading Time Taken Comments Blood Pressure 122/64 07/07/2022 8:01 AM EST Pulse 77 07/07/2022 8:01 AM EST Temperature 36.2 C (97.1 F) 01/14/2022 8:52 AM EDT Respiratory Rate 16 07/07/2022 8:01 AM EST Oxygen Saturation 95% 07/07/2022 8:01 AM EST Inhaled Oxygen Concentration - - Weight 102.3 kg (225 lb 8 oz) 07/07/2022 8:01 AM EST Height 188.8 cm (6' 2.33 ) 07/07/2022 8:01 AM ES T Body Mass Index 28.7 07/07/2022 8:01 AM EST Plan of Treatment Health Maintenance Due Date Last Done Comments ZOSTER VACCINES (1 of 2) 09[birth year]1971 COLOGUARD 1997 COLONOSCOPY 1997 FOBT 1997 SIGMOIDOSCOPY 1997 VIRTUAL COLONOSCOPY 1997 COLORECTAL CANCER SCREENING 12/04/2021 FIT TEST 12/04/2021 12/04/2020 BLOOD PRESSURE 01/04/2023 07/07/2022 CREATININE LEVEL 01/14/2023 01/14/2022, 07/2021, 01/18/2021, Additional history exists DEPRESSION SCREENING 01/14/2023 01/14/2022, 12/05/19 21 POTASSIUM LEVEL 01/14/2023 01/14/2022, 05/0 07/2021, 01/18/2021, Additional history exists COVID-19 VACCINE () 01/24/2024 02/05/2022, 08/23/2021, 02/15/2021, Additional history exists Adult Td,Tdap Booster 11/05/2026 11/05/2016 LIPID PANEL 01/14/2027 01/14/2022, 05/0 07/2021, 01/18/2021, Additional history exists RSV VACCINE (1 - 1-dose 75+ series) 09/05/2027 HEPATITIS C SCREENING Completed 03/12/2017 PNEUMOCOCCAL VACCINES (50+ years) Completed 04/08/2018, 11/05/2016 SMOKING STATUS SCREENING (Once After 26 Yrs) Completed 07/07/2022 HEPATITIS A VACCINES Aged Out No long er eligible based on patient's age to complete this topic HIB VACCINES Aged Out No longer eligi ble based on patient's age to complete this topic MENINGOCOCCAL VACCINES (ACWY) Aged Out No longer eligible based on patient's age to complete this topic MENINGOCOCCAL VACCINES (B) Aged Out N o longer eligible based on patient's age to complete this topic Medical Devices Not on file Procedures Procedure Name Priority Date/Time Associated Diagnosis Comments LIPID PANEL Routine 01/14/2022 9:40 AM EDT Routine general medical examination at a health care facility Dyslipidemia BASIC METABOLIC PANEL Routine 01/14/2022 9:40 AM EDT Essential hypertension Routine general medical examination at a [facility] facility HC BLOOD OCCULT FECAL HGB DETER IA QUAL FECES 1-3 Routine 12/04/2020 7:00 AM EDT Colon cancer screening OUTSIDE HEPATITIS C VIRUS SCREENING Routine 03/12/2017 from Last 3 Months or Most Recently Relevant to Health Maintenance Results * (ABNORMAL) Lipid panel (01/14/2022 9:40 AM EDT) HDL 46 mg/dL [facility] Comment: Interpretation <40 mg/dL: Low HDL cholesterol (major risk factor for CHD) Greater than or equal to 60 mg/dL: High HDL cholesterol ( negative risk factor for CHD) HDL - cholesterol is affected by a number of factors, e.g. smoking, excerise, hormones, sex and age. CHOLESTEROL 161 0 - 240 mg/dL [facility] TRIGLYCERIDES 211(H) 30 - 160 mg/dL [facility] LDL 73 50 - 129 mg/dL [facility] Comment: LDL levels in terms of risk for coronary heart disease: <100 mg/dL: Optimal 100-129 mg/dL: Near or above optimal 130-159 mg/dL: Borderline high 160-189 mg/dL: High >190 mg/dL: Very High CARDIAC RISK RATIO 3.5 3.4 - 5.0 C [facility] Blood 01/14/2022 9:40 AM EDT 01/14/2022 9:46 AM EDT Devan Littlejohn MD LAB BLOOD ORDERABLES Final Resul t Performing Organization Address City/[facility] Co de Phone Number [address] [phone] * (ABNORMAL) Basic metabolic panel (01/14/2022 9:40 AM EDT) SODIUM 140 133 - 146 mmol/L [facility] CHLORIDE 105 96 - 108 mmol/L [facility] POTASSIUM 4.7 3.3 - 5.1 mmol/L [facility] CO2 22 21 - 35 mmol/L [facility] BUN 21(H) 6 - 19 mg/dL [facility] CREATININE 1.10 0.5 - 1.5 mg/dL [facility] GLUCOSE 107(H) 70 - 99 mg/dL [facility] CALCIUM 9.7 8.4 - 10.3 mg/dL [facility] EGFR 73 >59 mL/min/1.7 3m2 [facility] Comment:Estimated glomerular filtration rate calculated using the CKD-EPI refit equation. ANION GAP 18 10 - 20 mmol/L [facility] Blood 01/14/2022 9:40 AM EDT 01/14/2022 9:45 AM EDT Devan Littlejohn MD LAB BLOOD ORDERABLES Final Resul t Performing Organization Address City/[facility]/ZIP Co de Phone Number [address] [phone] * Fecal immunochemical test x1 (FIT) (12/04/2020 7:00 AM EDT) Immuno Fecal Occult Negative Negative [facility] Stool (Stool) 12/04/2020 7:0 0 AM EDT 12/04/2020 9:55 AM EDT Devan Littlejohn MD BODY FLUIDS AND STOOLS ORDERABLE S Final Result [facility] [address] [place] [address] * Outside Hepatitis C Virus Screening (03/12/2017) Hepatitis C Screening - External Neg us Historical Provider LAB BLOOD ORDERABLES No l Result from Last 3 Months or Most Recently Relevant to Health Maintenance Insurance MEDICARE REPLACEMENT MEDICARE REPLACEMENT MEDICARE REPLACEMENT MEDICARE REPLACEMENT MEDICARE REPLACEMENT MEDICARE REPLACEMENT Care Teams Piler Relationship Specialty Start Date End Date Unknown, Unknown, PCP - General 04/24/23 Additional Source Comments The information contained in this document represents components of the legal health record. It is not the complete legal health record.[facility]
== END 2025-01-12 12:16 | disposition home or self-care (01) ==
PROVIDERS: PCP Internal Medicine; Visit Provider Physician Assistant
DX: M10.9 Gout, unspecified (principal)

== ENCOUNTER → 2025-01-12 10:43 | Outpatient (BNVA) | payer MEDICARE, SELFPAY | PROVIDERS: PCP Internal Medicine; Visit Provider Physician Assistant | DX: M10.9 Gout, unspecified (principal) | CPT/HCPCS: 99212 ==

== ENCOUNTER 2025-01-24 10:40 | Outpatient (AMB) | payer MEDICARE, SELFPAY ==
[2025-01-24 10:43] VITALS: BP 118/76; PULSE 88; RESP 18; TEMP 36.8; O2SAT 95; BMI 28.9
--- NOTE | 2025-01-24 10:43 | A.OFFPC_ITS ---
Vital Signs 01/24/25 10:43 Height 6 ft 2 in Weight 225 lb BMI 28.9 BP 118/76 Blood Pressure Location Lt brachial Position Sitting Respiration 18 Pulse 88 Pulse Source Pulse Oximeter Temp 98.2 F Temp Source Oral Pulse Oximetry (%) 95 Oxygen Delivery Method Room Air Intake Visit Reasons: PE - see comments Intake Note: Pt is here today for PE. Allergies No Known Allergies Allergy (Verified 01/24/25 10:43) Medication List - Last Reconciled 01/24/25 by Delmi Ramirez MD amlodipine 5 mg PO DAILY atorvastatin 20 mg PO DAILY benazepril 20 mg PO DAILY bupropion HCl XL 150 mg PO QAM escitalopram oxalate 20 mg PO DAILY Tobacco use date assessed: 01/24/25 Fall risk assessment: No Falls in past year Last assessed Fall Risk: 01/24/25 Dental Screening Dental Screen Date: 01/24/25 Did you have a dental visit in the last 12 months?: No Did you have a dental problem in the last 6 months where you did not have access to dental care?: No Was dental information given to patient?: Patient declined HPI PE - see comments HPI Details Pt presents for PE. [facility] Medical History (Updated 01/24/25 @ 20:42 by Delmi Ramirez MD) Hyperlipidemia HTN (hypertension) Anxiety Positive colorectal cancer screening using Cologuard test History of prostate cancer Surgical History (Updated 01/24/25 @ 20:42 by Delmi Ramirez MD) History of hernia surgery Family History Father Lymphoma Mother No problems noted. Social History Household Members Other:: , with Alzheimer Housing: House Patient Tobacco Use Status: Never used Tobacco e-Cigarette/Vaping Use: Never Used service: No Current occupational status: retired Cognitive needs: No Hearing needs: No Vision needs: Yes Questionnaire PHQ-9 Over the last 2 weeks, how often have you been bothered by any of the following problems? 1. Little interest or pleasure in doing things: not at all 2. Feeling down, depressed, or hopeless: nearly every day 3. Trouble falling or staying asleep, or sleeping too much: not at all 4. Feeling tired or having little energy: more than half the days 5. Poor appetite or overeating: not at all 6. Feeling bad about yourself - or that you are a failure or have let yourself or your family down: not at all 7. Trouble concentrating on things, such as reading the newspaper or watching television: not at all 8. Moving or speaking so slowly that other people could have noticed. Or the opposite - being so fidgety or restless that you have been moving around a lot more than usual: not at all 9. Thoughts that you would be better off or of hurting yourself in some way: not at all Total score: 5 Depression Screening Interpretation: Negative Depression Screening Done: Yes 27621 - PHQ-9 Billing: Yes Source: Developed by Drs. Vernon Macdonald, Felipe Ramsey and colleagues, with an educational orestes from [employer]. Thrive Questionnaire Date Thrive assessed: 07/12/24 I am a: Patient What is your living situation today?: I have a steady place to live Within the past 12 months, did the food you bought not last and you didn't have the money to get more?: Never true Within the past 12 months, did you worry whether your food would run out before you got money to buy more?: Never true Do you have trouble paying for medicines?: No Do you have trouble getting transportation to medical appointments?: No Do you have trouble paying your heating and electricity bill?: No Do you have trouble taking care of your child, family member or friend?: No Do you have trouble with day-to-day activities such as bathing, preparing meals, shopping, managing finances, etc.?: No Are you currently unemployed and looking for a job?: No Are you interested in more education?: No Please select the resources that you would like help with: None Currently or been in a relationship where the following occur: No concerns reported THRIVE Score: 0 DIOGENES-7 AMB Questionnaire DIOGENES-7 Date DIOGENES - 7 assessed: 09/15/24 Source: Developed by Drs. Vernon Macdonald, Felipe Ramsey and colleagues, with an educational orestes from [employer]. Review of Systems Const All systems reviewed & are unremarkable except as noted in HPI and below Eyes Reports no additional complaints ENT Reports no additional complaints Card Reports no additional complaints Resp Reports no additional complaints GI Reports no additional complaints Reports no additional complaints Physical exam (Primary Care) Vital Signs: Last Vital Signs Temp 98.2 F 01/24/25 10:43 Pulse 88 01/24/25 10:43 Resp 18 01/24/25 10:43 BP 118/76 01/24/25 10:43 Pulse Ox 95 01/24/25 10:43 Oxygen Delivery Method Room Air 01/24/25 10:43 BMI result Body Mass Index 28.9 Tobacco/Smoking Status: Tobacco use Status Tobacco use date assessed 01/24/25 01/24/25 10:47 Patient Tobacco Use Status Never used Tobacco 01/24/25 10:47 e-Cigarette/Vaping Use Never Used 01/24/25 10:47 PHQ-9: PHQ-9 Score PHQ-9: Total score 5 01/24/25 11:37 Depression Screening Interpretation: Negative Thrive Assessment: Date of Thrive Assessment Date Thrive assessed 07/12/24 01/24/25 10:47 Currently or been in a relationship where the following occur: No concerns reported Const General: no acute distress HENMT Head: Yes normal to inspection Eyes General: appearance normal, both eyes and all related structures Neck Neck: Yes no lymphadenopathy and Yes supple Resp Effort & Inspection: normal respiratory effort Auscultation: clear to auscultation bilaterally Cardio Rhythm: regular rhythm Heart sounds: S1 normal heart sound present and S2 normal heart sound present GI Inspection: Yes normal to inspection Palpation (GI): Soft to palpation Percussion: Yes normal to percussion Auscultation: normal bowel sounds Coding Level of Care Code Est Pt Prev Care >65y(86069) Diagnoses Positive colorectal cancer screening using Cologuard test R19.5 HTN (hypertension) I10 Hyperlipidemia E78.5 Annual physical exam Z00.00 Additional Codes PHQ-9 - 38193 - PHQ-9 Billing: Yes ([id number]) Assessment & Plan Assessment & Plan (1) Positive colorectal cancer screening using Cologuard test: Code(s): R19.5 - Other fecal abnormalities Category: Medical Plan: refer to GI [facility] (2) HTN (hypertension): Code(s): I10 - Essential (primary) hypertension Category: Medical Plan: cont meds (3) Hyperlipidemia: Code(s): E78.5 - Hyperlipidemia, unspecified Category: Medical Plan: cont statin (4) Annual physical exam: Code(s): Z00.00 - Encounter for general adult medical examination without abnormal findings Category: Medical Plan: well balanced diet, regular exercise discussed Orders: Orders UA w Microscopic Today E78.5 - Hyperlipidemia, unspecified, I10 - Essential (primary) hypertension Referrals Gastroenterology Referral R19.5 - Other fecal abnormalities Medications: Refilled amlodipine 5 mg PO DAILY 90 tabs 3RF bupropion HCl XL 150 mg PO QAM 90 tabs 3RF atorvastatin 20 mg PO DAILY 90 tabs 3RF benazepril 20 mg PO DAILY 90 tabs 3RF escitalopram oxalate 20 mg PO DAILY 90 tabs 3RF
--- OUTSIDE RECORDS SUMMARY | 2025-01-24 12:12 | XMS_ITS | Clinical Summary ---
Author Organization [facility] Address [address] [place] [id number] Phone Care Team Providers Care Portrait Artist Name Role Phone Unknown, Unknown Primary Care [...] send the patient to Dr. Patel at [facility] to assess for repair. Congenital absence of [...] was admitted 05/13 for 7 days in [facility] for dyspnea associated with covid 19 infection. [...] 46 minutes today for this visit of [id number]-yj-[id number] time with greater than half used in [...] Pt being [facility] by [facility] Was discovered by PSA. Dr Campbell had sent to Dr Bell due to psa elevation. Assessment & Plan (01/14/2022 9:37 AM EDT): Will obtain a PSA but if elevated will pass on to the patient's urologist. He is status post prostatectomy at least 4 years out. Assessment & Plan (09/24/2021 5:40 PM EDT): He continues to be followed over at [facility] urology for prostate cancer, continues to come [...] hypertension Routine general medical examination at a city hospital care facility HC BLOOD OCCULT FECAL HGB DETER IA QUAL FECES 1-3 Routine 12/04/2020 7:00 AM EDT Colon cancer screening OUTSIDE HEPATITIS C VIRUS SCREENING Routine 03/12/2017 from Last 3 Months or Most Recently Relevant to Health Maintenance Results * (ABNORMAL) Lipid panel (01/14/2022 9:40 AM EDT) HDL 46 mg/dL [facility] Comment: Interpretation <40 mg/dL: Low HDL cholesterol (major risk factor for CHD) Greater than or equal to 60 mg/dL: High HDL cholesterol ( negative risk factor for CHD) HDL - cholesterol is affected by a number of factors, e.g. smoking, excerise, hormones, sex and age. CHOLESTEROL 161 0 - 240 mg/dL [facility] TRIGLYCERIDES 211(H) 30 - 160 mg/dL [facility] LDL 73 50 - 129 mg/dL [facility] Comment: LDL levels in terms of risk for coronary heart disease: <100 mg/dL: Optimal 100-129 mg/dL: Near or above optimal 130-159 mg/dL: Borderline high 160-189 mg/dL: High >190 mg/dL: Very High CARDIAC RISK RATIO 3.5 3.4 - 5.0 C [facility] Blood 01/14/2022 9:40 AM EDT 01/14/2022 9:46 AM EDT Devan Littlejohn MD LAB BLOOD ORDERABLES Final Resul t Performing Organization Address City/[facility] Co de Phone Number [address] [address] * (ABNORMAL) Basic metabolic panel (01/14/2022 9:40 AM EDT) SODIUM 140 133 - 146 mmol/L [facility] CHLORIDE 105 96 - 108 mmol/L [facility] POTASSIUM 4.7 3.3 - 5.1 mmol/L [facility] CO2 22 21 - 35 mmol/L [facility] BUN 21(H) 6 - 19 mg/dL [facility] CREATININE 1.10 0.5 - 1.5 mg/dL [facility] GLUCOSE 107(H) 70 - 99 mg/dL [facility] CALCIUM 9.7 8.4 - 10.3 mg/dL [facility] EGFR 73 >59 mL/min/1.7 3m2 [facility] Comment:Estimated glomerular filtration rate calculated using the CKD-EPI refit equation. ANION GAP 18 10 - 20 mmol/L [facility] Blood 01/14/2022 9:40 AM EDT 01/14/2022 9:45 AM EDT Devan Littlejohn MD LAB BLOOD ORDERABLES Final Resul t Performing Organization Address City/[facility]/ZIP Co de Phone Number [address] [address] * Fecal immunochemical test x1 (FIT) (12/04/2020 7:00 AM EDT) Immuno Fecal Occult Negative Negative [facility] Stool (Stool) 12/04/2020 7:0 0 AM EDT 12/04/2020 9:55 AM EDT Devan Littlejohn MD BODY FLUIDS AND STOOLS ORDERABLE S Final Result [facility] [address] [place] [address] * Outside Hepatitis C Virus Screening (03/12/2017) Hepatitis C Screening - External Neg us Historical Provider LAB BLOOD ORDERABLES No l Result from Last 3 Months or Most Recently Relevant to Health Maintenance Insurance MEDICARE REPLACEMENT MEDICARE REPLACEMENT MEDICARE REPLACEMENT MEDICARE REPLACEMENT MEDICARE REPLACEMENT MEDICARE REPLACEMENT Care Teams Portrait Artist Relationship Specialty Start Date End Date Unknown, Unknown, PCP - General 04/24/23 Additional Source Comments The information contained in this document represents components of the legal health record. It is not the complete legal health record.[facility]
== END 2025-01-24 11:44 | disposition home or self-care (01) ==
LOC: HO.HMCC 10:43
PROVIDERS: PCP Internal Medicine; Visit Provider Internal Medicine
DX: R19.5 Other fecal abnormalities (principal); I10 Essential (primary) hypertension; E78.5 Hyperlipidemia, unspecified; Z00.00 Encounter for general adult medical examination without abnormal findings

== ENCOUNTER → 2025-01-24 10:40 | Outpatient (BNVA) | payer MEDICARE, SELFPAY | PROVIDERS: PCP Internal Medicine; Visit Provider Internal Medicine | DX: Z00.00 Encounter for general adult medical examination without abnormal findings (principal); R19.5 Other fecal abnormalities; E78.5 Hyperlipidemia, unspecified; I10 Essential (primary) hypertension | CPT/HCPCS: 96127; 99397 ==

== ENCOUNTER 2025-01-30 12:20 | Day surgery (SDC) | payer MEDICARE, SELFPAY ==
--- OUTSIDE RECORDS SUMMARY | 2025-01-25 16:35 | XMS_ITS | Patient Health Record ---
Author Organization [facility] Address [address] [place] [id number] Care Team Providers Care Radioisotope Technologist Name Role Phone Delmi Ramirez MD Primary Care Provider Vernon Fernandez Unavailable [phone] Allergies No Known Allergies Reason For Referral No Information Medications Medication SIG (Take, Route, Frequency, Duration) Notes Start Date End Date Status Benazepril HCl 20 MG 1 tablet Orally Onc e a day for 30 day(s) 01/25/2025 Active Atorvastatin Calcium 20 MG 1 tablet Oral ly Once a day for 30 day(s) 01/25/2025 Active amLODIPine Besylate 5 MG 1 tablet Orally Once a day for 30 day(s) 01/25/2025 Active Escitalopram Oxalate 20 MG 1 tablet Oral ly Once a day for 30 day(s) 01/25/2025 Active buPROPion HCl ER (Smoking Det) 150 MG 1 tablet in the morning Orally Once a day for 30 day(s) 01/25/2025 Active Immunizations Vaccine Route Administration Date Status Comme nts Influenza Unknown 03/08/2024 Administered Social History Tobacco Use: Social History Observation Description Date Details (start date - stop date) Never Smoker NA - NA Tobacco Control (Standard) Question Answer Notes Tobacco use: Nonsmoker AUDIT-C (Standard) Question Answer Notes Did you have a drink containing alcohol in the p ast year? No Points 0 Interpretation Negative Section Notes: No sig alcohol Problems Problem Type SNOMED Code ICD Code Onset Dates Problem Status W/U Status Risk Notes Problem Abnormal feces ([id number]) Positive colorectal cancer screening using Cologuard test (R19.5) Active confirmed Vital Signs Temperature 97.7 degrees Fahrenheit 01/25/2025 Blood pressure diastolic 01 mm Hg 01/25/2025 Height 74 in 01/25/2025 Blood pressure systolic 001 mm Hg 01/25/2025 Weight 226.6 lbs 01/25/2025 BMI 29.09 kg/m2 01/25/2025 Procedures Procedure Date Ordered Date Performed Result Body Sit e COLONOSCOPY 01/25/2025 N/A Encounters Encounter Location Date Provider Diagnosis [facility] [address] [place] [address] 01/25/2025 Vernon Millan Positive colorectal cancer screening using Cologuard test R19.5 Assessments Encounter Date Diagnosis (ICD Code) Assessment Notes Treatment Notes Treatment Clinical Notes Section Notes 01/25/2025 Positive colorectal cancer screening using Cologuard test (ICD-10 - R19.5) Overall, Aniket appears quite well. We did review that given his recent positive Cologuard test, a colonoscopy well over 10 years ago with removal of polyps, his age, and overall good clinical appearance, I would recommend a colonoscopy for further evaluation. We did review the rationale for this in regard to colorectal cancer prevention and/or early detection. Full consent has been obtained for this, including risks of bleeding and perforation. The procedure will be done with monitored anesthesia care. We shall try to get this scheduled within the next month or so. Aniket was comfortable with this plan. Thank you again for allowing me to participate in Aniket's care. I shall continue to keep you advised of his progress. Plan Of Treatment Pending Test Test Name Order Date COLONOSCOPY 01/25/2025 Next Appt Details Provider Name:Vernon Millan , 01/30/2025 02:20:00 PM, [address] [place] [address] , [place], [place], [phone], Insurance Providers Payer Name Payer Address Payer Phone Subscriber Number Group Number Insured Name Patient Relationship to Insured Coverage Start Date Coverage End Date [facility] Medicare Advantage Plan [address] [address] [place] [address] [phone] [id number] ANIKET URBANO Self - patient is the insured Medical (General) History Medical History History ICD Code Hyperlipidemia Hypertension Prostate cancer--surgery and XRT Anxiety Denies [place],DM,CVA,Lung disease,renal dise ase Colonoscopy in his mid-50's with removal of polyps Kidney stones Surgical History Surgery Date(Month/Year) Prostate surgery Left inguinal hernia surgery
--- OUTSIDE RECORDS SUMMARY | 2025-01-25 16:35 | XMS_ITS | Clinical Summary ---
Author Organization [facility] Address [address] [place] [phone] Phone Care Team Providers Care Solderer Electronic Name Role Phone Unknown, Unknown Primary Care [...] send the patient to Dr. Patel at [facility] to assess for repair. Congenital absence [...] was admitted 05/13 for 7 days in [facility] for dyspnea associated with covid 19 infection. [...] 46 minutes today for this visit of yglw-mp-xwea time with greater than half used in [...] Pt being followed by Dr Bell from [facility]. Was discovered by PSA. Dr Campbell had sent to Dr Bell due to psa elevation. Assessment & Plan (01/14/2022 9:37 AM EDT): Will obtain a PSA but if elevated will pass on to the patient's urologist. He is status post prostatectomy at least 4 years out. Assessment & Plan (09/24/2021 5:40 PM EDT): He continues to be followed over at [facility] urology for prostate cancer, continues [...] 01/14/2022, 05/0 07/2021, 01/18/2021, Additional history exists INFLUENZA VACCINE (#1) 2024 2, 02/15/2021, 02/02/2020, Additional history exists COVID-19 VACCINE (2024- season) 2025 02/05/2022, 08/23/2021, 02/15/2021, Additional history exists Adult [...] hypertension Routine general medical examination at a health care facility HC BLOOD OCCULT FECAL HGB DETER IA QUAL FECES 1-3 Routine 12/04/2020 7:00 AM EDT Colon cancer screening OUTSIDE HEPATITIS C VIRUS SCREENING Routine 03/12/2017 from Last 3 Months or Most Recently Relevant to Health Maintenance Results * (ABNORMAL) Lipid panel (01/14/2022 9:40 AM EDT) HDL 46 mg/dL [facility] Comment: Interpretation <40 mg/dL: Low HDL cholesterol (major risk factor for CHD) Greater than or equal to 60 mg/dL: High HDL cholesterol ( negative risk factor for CHD) HDL - cholesterol is affected by a number of factors, e.g. smoking, excerise, hormones, sex and age. CHOLESTEROL 161 0 - 240 mg/dL [facility] TRIGLYCERIDES 211(H) 30 - 160 mg/dL [facility] LDL 73 50 - 129 mg/dL [facility] Comment: LDL levels in terms of risk for coronary heart disease: <100 mg/dL: Optimal 100-129 mg/dL: Near or above optimal 130-159 mg/dL: Borderline high 160-189 mg/dL: High >190 mg/dL: Very High CARDIAC RISK RATIO 3.5 3.4 - 5.0 C [facility] Blood 01/14/2022 9:40 AM EDT 01/14/2022 9:46 AM EDT Devan Littlejohn MD LAB BLOOD ORDERABLES Final Resul t Performing Organization Address City/State/[facility] Co de Phone Number [address] [address] * (ABNORMAL) Basic metabolic panel (01/14/2022 9:40 AM EDT) SODIUM 140 133 - 146 mmol/L [facility] CHLORIDE 105 96 - 108 mmol/L [facility] POTASSIUM 4.7 3.3 - 5.1 mmol/L [facility] CO2 22 21 - 35 mmol/L [facility] BUN 21(H) 6 - 19 mg/dL [facility] CREATININE 1.10 0.5 - 1.5 mg/dL [facility] GLUCOSE 107(H) 70 - 99 mg/dL [facility] CALCIUM 9.7 8.4 - 10.3 mg/dL [facility] EGFR 73 >59 mL/min/1.7 3m2 [facility] Comment:Estimated glomerular filtration rate calculated using the CKD-EPI refit equation. ANION GAP 18 10 - 20 mmol/L [facility] Blood 01/14/2022 9:40 AM EDT 01/14/2022 9:45 AM EDT us Devan Littlejohn MD LAB BLOOD ORDERABLES Final Resul t [address] [address] * Fecal immunochemical test x1 (FIT) (12/04/2020 7:00 AM EDT) Immuno Fecal Occult Negative Negative [facility] Stool (Stool) 12/04/2020 7:0 0 AM EDT 12/04/2020 9:55 AM EDT us Devan Littlejohn MD BODY FLUIDS AND STOOLS ORDERABLE S Final Result Performing Organization Address City/[facility]/ZIP Co de Phone Number [address] [address] * Outside Hepatitis C Virus Screening (03/12/2017) Pathologist [facility] Hepatitis C Screening - External Neg us Historical Provider LAB BLOOD ORDERABLES No l Result from Last 3 Months or Most Recently Relevant to Health Maintenance Insurance MEDICARE REPLACEMENT MEDICARE REPLACEMENT MEDICARE REPLACEMENT MEDICARE REPLACEMENT MEDICARE REPLACEMENT AAR MEDICARE REPLACEMENT Care Teams Solderer Electronic Relationship Specialty Start Date End Date Unknown, Unknown, PCP - General 04/24/23 Additional Source Comments The information contained in this document represents components of the legal health record. It is not the complete legal health record.[facility]
--- NOTE | 2025-01-27 11:56 | P.CONAN_ITS ---
Documented by User: Aarti Ramirez NP 01/27/25 11:57 HPI - Anesthesia Eval Consult details Narrative: 74 yr old male for colonoscopy Elevated trigylcerides: 259 in 2023 [facility] Active Problems Active Problems: All Active Problems (Updated 01/24/25 @ 20:42 by Delmi Ramirez MD) Annual physical exam (Acute) Gout attack (Acute) Positive colorectal cancer screening using Cologuard test (Acute) History of prostate cancer (Acute) Hyperlipidemia (Acute) HTN (hypertension) (Acute) Anxiety (Acute) Past Medical History Medical History Hyperlipidemia HTN (hypertension) Anxiety Positive colorectal cancer screening using Cologuard test History of prostate cancer Family History Family History Father Lymphoma Mother No problems noted. Surgical History Surgical History History of hernia surgery Social History Social History Household Members Other:: , with Alzheimer Housing: House Are you a primary career development coordinator/teacher to a significant other at home: No Do you presently have visiting nurse or other home services: No Patient Tobacco Use Status: Never used Tobacco e-Cigarette/Vaping Use: Never Used Use of substances other than those prescribed or required for medical reasons: No Have you been hit, kicked, punched, or otherwise hurt by someone within the past year? If so, by whom?: No Are you DNR?: No Advance Directives: No Advance Directives Information Provided: Yes Poor oral hygiene: No service: No Current occupational status: retired Cognitive needs: No Hearing needs: No Vision needs: Yes Meds Allergies Allergy/AdvReac Type Severity Reaction Status Date / Time No Known Allergies Allergy Verified 01/30/25 12:40 Documented by User: Edwina Duran MD 01/30/25 13:21 PMFSH Past Medical History Medical History Hyperlipidemia HTN (hypertension) Anxiety Positive colorectal cancer screening using Cologuard test History of prostate cancer Family History Family History Father Lymphoma Mother No problems noted. Family history of problems with anesthesia: No Surgical History Surgical History History of hernia surgery History of Problems with Anesthesia: No Social History Social History Household Members Other:: , with Alzheimer Housing: House Are you a primary career development coordinator/teacher to a significant other at home: No Do you presently have visiting nurse or other home services: No Patient Tobacco Use Status: Never used Tobacco e-Cigarette/Vaping Use: Never Used Use of substances other than those prescribed or required for medical reasons: No Have you been hit, kicked, punched, or otherwise hurt by someone within the past year? If so, by whom?: No Are you DNR?: No Advance Directives: No Advance Directives Information Provided: Yes Poor oral hygiene: No service: No Current occupational status: retired Cognitive needs: No Hearing needs: No Vision needs: Yes Meds Allergies Allergy/AdvReac Type Severity Reaction Status Date / Time No Known Allergies Allergy Verified 01/30/25 12:40 Exam Airway Mallampati Class: II TM Dist: >3cm Neck ROM: Full Heart: rrr Lungs: cta Assessment and Plan Assessment Anesthesia Assessment: Anesthesia Plan Discussed and Chart Reviewed Final Anesthetic Review Family History of Problems with Anesthesia: No History of Problems with Anesthesia: No NPO: Yes ASA Class: II Final Preanesthetic Review: No Changes in Pt Med Stat, Meds/Allgs Chart Reviewed and Consent Obtained/Reviewed Patient Risk: Low Procedure Risk: Low Anesthetic Plan Anesthetic Plan: MAC: Disposition: Standard PACU
[2025-01-30 12:46] VITALS: BP 136/84; PULSE 85; RESP 14; TEMP 36.4; O2SAT 97; BMI 28.2
[2025-01-30] MEDS: Lactated Ringers 1,000 ML 100 ML IVCONT (12:49)
[2025-01-30 14:58] VITALS: BP 118/87; PULSE 82; RESP 16; TEMP 36.6; O2SAT 95
--- NOTE | 2025-01-30 15:09 | P.BOP_ITS ---
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 Cecal polyps x 2 B. Polyp at 15cm) Condition: stable Disposition: PACU
[2025-01-30 15:13] VITALS: BP 116/74; PULSE 72; RESP 20; TEMP 36.4; O2SAT 95
--- NOTE | 2025-01-31 00:18 | OP_ITS ---
DATE OF SERVICE: 01/30/2025 SURGEON: Vernon Millan MD INDICATIONS: The patient presents for evaluation of a positive Cologuard as well as a previous history of colon polyps. Full consent has been obtained from him for this, including risks of bleeding and perforation. PREOPERATIVE DIAGNOSIS: Positive Cologuard test, History of colon polyps. POSTOPERATIVE DIAGNOSIS: Colon polyps: PROCEDURE PERFORMED: Colonoscopy to the cecum and terminal ileum with cold snare polypectomy x 3. ESTIMATED BLOOD LOSS: COMPLICATIONS: ANESTHESIA: Medication used, monitored anesthesia care. The patient was placed in the left lateral decubitus position. The digital rectal exam revealed no abnormality. The Olympus video pediatric colonoscopy was entered in to the rectum and advanced easily to the cecum. Once in the cecum, I did identify a cecal pouch with appendiceal orifice and a normal-appearing ileocecal valve. The terminal ileum was cannulated and appeared normal. Scope was withdrawn back in the colon. The entire cecum was well visualized. In the cecum was an approximately 8 mm polyp, which was removed by cold snare polypectomy and recovered by suction. In the same area was an approximately 3 mm polyp, which was also removed by a cold snare polypectomy and then recovered by suction. Both polypectomy sites appeared clean, without any sign of residual polyp nor significant bleeding. The remainder of the cecum appeared normal. The scope was slowly withdrawn assessing all mucosal surfaces carefully. Preparation was excellent. At 15 cm was a flat, but raised approximately 8 mm polyp, which was removed by cold snare polypectomy and recovered by suction. The polypectomy site appeared clean, without any sign of residual polyp nor significant bleeding. I did not visualize any other polyps, colitis, nor angiodysplasia. There was a mild amount of sigmoid diverticulosis. In the rectum, scope was retroflexed visualizing internal hemorrhoids as well as nonbleeding telangiectasias consistent with previous radiation treatment. The remainder of the rectal mucosa appeared normal. Scope was straightened and withdrawn from the patient. He tolerated the procedure well and was returned to the recovery area in stable condition. ASSISTANTS: SPECIMENS: POSTOPERATIVE DIAGNOSES: Colon polyps, diverticulosis, and internal hemorrhoids, as well as some telangiectasias in the rectum consistent with previous radiation treatment. IMPRESSION: 1. Colon polyps. 2. Diverticulosis. 3. Internal hemorrhoids. 4. 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 PLAN: The results of the pathology will be checked. If these are tubular adenomas, I would recommend a followup coloscopy in 5 years. If they are all hyperplastic and/or inflammatory, I would recommend that he would not need any further screening colonoscopies. He was advised not to use any aspirin nor NSAIDs for least a week. He will otherwise see me on a p.r.n. basis. MD QUINTON Porter/BRADFORD / [phone] MTDSushil
== END 2025-01-30 15:34 | disposition home or self-care (01) ==
PROVIDERS: PCP Internal Medicine; Visit Provider Internal Medicine
PROC: 0DJD8ZZ Inspection of Lower Intestinal Tract, Via Natural or Artificial Opening Endoscopic (ICD-10-PCS; CPT 45378; principal; 2025-01-30 13:30)
DX: R19.5 Other fecal abnormalities (principal); Z86.0101 Personal history of adenomatous and serrated colon polyps; K62.7 Radiation proctitis; K63.5 Polyp of colon; K57.30 Diverticulosis of large intestine without perforation or abscess without bleeding; K64.8 Other hemorrhoids; I10 Essential (primary) hypertension; E78.5 Hyperlipidemia, unspecified; N20.0 Calculus of kidney; F41.9 Anxiety disorder, unspecified; Z85.46 Personal history of malignant neoplasm of prostate; Z92.3 Personal history of irradiation; Z79.899 Other long term (current) drug therapy; Z98.890 Other specified postprocedural states
CPT/HCPCS: 45385; 88305; J2704

== ENCOUNTER 2025-02-17 08:46 | Outpatient (AMB) | payer MEDICARE, SELFPAY ==
--- OUTSIDE RECORDS SUMMARY | 2025-01-30 09:30 | XMS_ITS ---
Author Organization [facility] Address [address] [place] [phone] Care Team Providers Care Dog Show Judge Name Role Phone Delmi Ramirez MD Primary Care Provider Vernon Fernandez [phone] REASON FOR VISIT positive colon cancer screening using cologuard Encounters Encounter Location Date Provider Diagnosis [facility] Outpatient [address] [place], [place] [phone] 01/30/2025 Vernon Millan Plan Of Treatment No Information Progress Notes * ADENIKE URBANODOB:1950 (74 yo M)Acc No.[id number]:01/30/2025 COLON WITH MAC Patient: ADENIKE BURNS Provider: Joy Millan MD :1950 A ge:74 Y S ex:Male Date:01/30/2025 Address:[address] [place], [place] [id number] Pcp:Delmi Ramirez MD Subjective: * Chief Complaints: * 1 . Positive colon cancer screening using cologuard. * Medical History: Objective: * Vitals: Assessment: Plan: * Treatment: * * The named appointment provid er may or may not be the originator of this progress note, and it is not deemed complete until electronically signed by the appointment provider. Sign off status: Pending * Provider: Joy Millan MD Date: 0 01/30/2025 Generated for David mckeon/Alonso/eTransmitting on: 02/17/2025 09:23 AM EDT
--- NOTE | 2025-02-17 08:48 | MHC.OFFWIV ---
Intake Vital Signs 02/17/25 08:49 Height 6 ft 2 in Weight 227 lb BMI 29.1 BP 121/74 Blood Pressure Location Lt brachial Position Sitting Respiration 16 Pulse 93 Pulse Source Pulse Oximeter Temp 97.9 F Temp Source Oral Pulse Oximetry (%) 95 Oxygen Delivery Method Room Air Intake Visit Reasons: EP Pain behind lt knee Patient Tobacco Use Status: Never used Tobacco Heel Lift Gouger Required: No Accompanied by: Self / Same As Patient Allergies No Known Allergies Allergy (Verified 01/30/25 12:40) HPI EP Pain behind lt knee HPI Details This is a 73 year old male patient who presents to the [place] clinic today with report of posterior left knee pain. This has been present for a week or so. No recent injurt or trauma. He has pain with standing and walking that is completely alleviated with sitting/rest. He feels that the back of his knee is slightly swollen. [facility] Medical History Hyperlipidemia HTN (hypertension) Anxiety Positive colorectal cancer screening using Cologuard test History of prostate cancer Surgical History History of hernia surgery Family History Father Lymphoma Mother No problems noted. Social History Household Members Other:: , with Alzheimer Housing: House Are you a primary wound care technician to a significant other at home: No Do you presently have visiting nurse or other home services: No Patient Tobacco Use Status: Never used Tobacco e-Cigarette/Vaping Use: Never Used service: No Current occupational status: retired Cognitive needs: No Hearing needs: No Vision needs: Yes Review of Systems Const All systems reviewed & are unremarkable except as noted in HPI and below Physical Exam Vital Signs: Last Vital Signs Temp 97.9 F 02/17/25 08:49 Pulse 93 02/17/25 08:49 Resp 16 02/17/25 08:49 BP 121/74 02/17/25 08:49 Pulse Ox 95 02/17/25 08:49 Oxygen Delivery Method Room Air 02/17/25 08:49 BMI result Body Mass Index 29.1 Const General: cooperative, healthy appearing and no acute distress Resp Effort & Inspection: normal respiratory effort Skin General skin exam: no rashes or lesions noted Extrem Other: LLE: full ROM knee joint. No joint effusion noted. Mild swelling posterior knee with slight pain to palp. No warmth or erythema. Regular pedal pulses. No edema. Psych Appearance: grossly normal Mental Status: mental status grossly normal Speech and movement: Normal speech and movement present Assessment & Plan Assessment & Plan (1) Posterior left knee pain: Code(s): M25.562 - Pain in left knee Plan: Symptoms consistent with a Bishop's cyst. Will start patient on NSAID and advised rest and ice application over the next couple of days. We reviewed indications, use, possive s/e of medication. Ortho consult entered for consideration of intraarticular glucocorticoid injection if needed. Patient verbalizes understanding and agrees to plan. Orders: Referrals Orthopedics Referral M25.562 - Pain in left knee Medications: New diclofenac potassium 50 mg PO BID 14 tabs 0RF 7 days M25.562 - Pain in left knee Coding Level of Care Code Est Pt Level 4 (11153) Diagnoses Posterior left knee pain M25.562
[2025-02-17 08:49] VITALS: BP 121/74; PULSE 93; RESP 16; TEMP 36.6; O2SAT 95; BMI 29.1
--- OUTSIDE RECORDS SUMMARY | 2025-02-17 09:23 | XMS_ITS | Patient Health Record ---
Author Organization [facility] Address [address] [place] [phone] Care Team Providers Care Elevator Technician Name Role Phone Delmi Ramirez MD Primary Care Provider Vernon Fernandez Unavailable [phone] Allergies No Known Allergies Results Component Value Reference Range Notes Pathology (Not yet reviewed by provider) Interpretation: Performing Lab:[facility], [address] [place] [phone] Notes/Report: Reason For Referral No Information Medications Medication [...] W/U Status Risk Notes Problem Abnormal feces ([id number]) Positive colorectal cancer screening using Cologuard test (R19.5) Active confirmed Vital Signs Temperature 97.7 degrees Fahrenheit 01/25/2025 Blood pressure diastolic 01 mm Hg 01/25/2025 Height 74 in 01/25/2025 Blood pressure systolic 001 mm Hg 01/25/2025 Weight 226.6 lbs 01/25/2025 BMI 29.09 kg/m2 01/25/2025 Procedures Procedure Date Ordered Date Performed Result Body Sit e COLONOSCOPY 01/25/2025 N/A Encounters Encounter Location Date Provider Diagnosis [facility] [place] Out[place] [address] [place], [place] [phone] 01/30/2025 Vernon Millan [facility] [address] [place] [phone] 01/25/2025 Vernon Millan Positive colorectal cancer screening using Cologuard test R19.5 [facility] [address] [place] [phone] 01/27/2025 Vernon Millan Assessments Encounter Date Diagnosis (ICD Code) Assessment [...] Test Test Name Order Date COLONOSCOPY 01/25/2025 Pathology 01/30/2025 Insurance Providers Payer Name Payer Address Payer Phone Subscriber Number Group Number Insured Name Patient Relationship to Insured Coverage Start Date Coverage End Date [facility] Medicare Advantage Plan [address] [address] [place] [address] [id number] ANIKET URBANO Self - patient is the insured Medical (General) History Medical History History ICD Code Hyperlipidemia Hypertension Prostate cancer--surgery and XRT Anxiety Denies MT,DM,CVA,Lung disease,renal dise ase Colonoscopy in his mid-50's with removal of polyps Kidney stones Surgical History Surgery Date(Month/Year) Prostate surgery Left inguinal hernia surgery
--- OUTSIDE RECORDS SUMMARY | 2025-02-17 09:23 | XMS_ITS | Clinical Summary ---
Author Organization [facility] Address [address] [place] [phone] Phone Care Team Providers Care Pan Pusher Name Role Phone Unknown, Unknown Primary Care [...] send the patient to Dr. Patel at [facility] to assess for repair. Congenital absence of [...] was admitted 05/13 for 7 days in [facility] for dyspnea associated with covid 19 [...] 46 minutes today for this visit of [id number] time with greater than half used in [...] Pt being followed by Dr Bell from [facility]. Was discovered by PSA. Dr Campbell had sent to Dr Bell due to psa elevation. Assessment & Plan (01/14/2022 9:37 AM EDT): Will obtain a PSA but if elevated will pass on to the patient's urologist. He is status post prostatectomy at least 4 years out. Assessment & Plan (09/24/2021 5:40 PM EDT): He continues to be followed over at [facility] urology for prostate cancer, continues to come [...] (01/14/2022 9:40 AM EDT) HDL 46 mg/dL [facility] Comment: Interpretation <40 mg/dL: Low HDL cholesterol (major risk factor for CHD) Greater than or equal to 60 mg/dL: High HDL cholesterol ( negative risk factor for CHD) HDL - cholesterol is affected by a number of factors, e.g. smoking, excerise, hormones, sex and age. CHOLESTEROL 161 0 - 240 mg/dL [facility] TRIGLYCERIDES 211(H) 30 - 160 mg/dL [facility] LDL 73 50 - 129 mg/dL [facility] Comment: LDL levels in terms of risk for coronary heart disease: <100 mg/dL: Optimal 100-129 mg/dL: Near or above optimal 130-159 mg/dL: Borderline high 160-189 mg/dL: High >190 mg/dL: Very High CARDIAC RISK RATIO 3.5 3.4 - 5.0 C [facility] Blood 01/14/2022 9:40 AM EDT 01/14/2022 9:46 AM EDT Devan Littlejohn MD LAB BLOOD ORDERABLES Final Resul t Performing Organization Address City/State/[facility] Co de Phone Number [address] [address] * (ABNORMAL) Basic metabolic panel (01/14/2022 9:40 AM EDT) SODIUM 140 133 - 146 mmol/L [facility] CHLORIDE 105 96 - 108 mmol/L [facility] POTASSIUM 4.7 3.3 - 5.1 mmol/L [facility] CO2 22 21 - 35 mmol/L [facility] BUN 21(H) 6 - 19 mg/dL [facility] CREATININE 1.10 0.5 - 1.5 mg/dL [facility] GLUCOSE 107(H) 70 - 99 mg/dL [facility] CALCIUM 9.7 8.4 - 10.3 mg/dL [facility] EGFR 73 >59 mL/min/1.7 3m2 [facility] Comment:Estimated glomerular filtration rate calculated using the CKD-EPI refit equation. ANION GAP 18 10 - 20 mmol/L [facility] Blood 01/14/2022 9:40 AM EDT 01/14/2022 9:45 AM EDT us Devan Littlejohn MD LAB BLOOD ORDERABLES Final Resul t [address] [id number] * Fecal immunochemical test x1 (FIT) (12/04/2020 7:00 AM EDT) Immuno Fecal Occult Negative Negative [facility] Stool (Stool) 12/04/2020 7:0 0 AM EDT 12/04/2020 9:55 AM EDT us Devan Littlejohn MD BODY FLUIDS AND STOOLS ORDERABLE S Final Result Performing Organization Address City/[facility]/ZIP Co de Phone Number [address] [address] * Outside Hepatitis C Virus Screening (03/12/2017) Pathologist [facility] [place] Hepatitis C Screening - External Neg us Historical Provider LAB BLOOD ORDERABLES No l Result from Last 3 Months or Most Recently Relevant to Health Maintenance Insurance MEDICARE REPLACEMENT MEDICARE REPLACEMENT MEDICARE REPLACEMENT MEDICARE REPLACEMENT MEDICARE REPLACEMENT AAR MEDICARE REPLACEMENT Care Teams Pan Pusher Relationship Specialty Start Date End Date Unknown, Unknown, PCP - General 04/24/23 Additional Source Comments The information contained in this document represents components of the legal health record. It is not the complete legal health record.[facility]
== END 2025-02-17 09:13 | disposition home or self-care (01) ==
PROVIDERS: PCP Internal Medicine; Visit Provider Nurse Practitioner Family
DX: M25.562 Pain in left knee (principal)

== ENCOUNTER → 2025-02-17 08:46 | Outpatient (BNVA) | payer MEDICARE, SELFPAY | PROVIDERS: PCP Internal Medicine; Visit Provider Nurse Practitioner Family | DX: M25.562 Pain in left knee (principal) | CPT/HCPCS: 99212 ==